=== PATIENT | male | born 1955 | race Caucasian/White ===

== ENCOUNTER 2024-10-08 08:12 | Day surgery (SDC) | payer MEDICARE ==
[2024-10-08] MEDS ORDERED: Propofol 200 MG/20 ML SDV ONE ×2 (09:01→10:17)
[2024-10-08] MEDS ORDERED: fentaNYL 50 MCG/ML SDV ONE (09:01)
[2024-10-08] MEDS ORDERED: Midazolam 1 MG/ML 2 ML SDV ONE (09:01)
[2024-10-08] MEDS: Lactated Ringers 1,000 ML IV SCH (09:06)
== END 2024-10-08 12:03 | disposition home or self-care (01) ==
LOC: JP.SDS 08:12
PROVIDERS: ATTEND Surgery
DX: Z12.11 Encounter for screening for malignant neoplasm of colon (principal); K63.5 Polyp of colon; R19.5 Other fecal abnormalities; F17.200 Nicotine dependence, unspecified, uncomplicated; Z79.899 Other long term (current) drug therapy
CPT/HCPCS: 00811; 45380; J2250; J2704; J3010; J7120